=== PATIENT | male | born 1980 | race Caucasian/White ===

== ENCOUNTER 2019-08-16 21:14 | Emergency (ER) | payer SELFPAY ==
[~2019-08-16] VITALS: Ht 188 cm; Wt 100.0 kg
[2019-08-16 22:44] VITALS: BP 166/106
== END 2019-08-16 23:10 | disposition home or self-care (01) ==
LOC: ER 21:14
DX: T40.4X1A Poisoning by other synthetic narcotics, accidental (unintentional), initial encounter (principal); F13.10 Sedative, hypnotic or anxiolytic abuse, uncomplicated; Y92.488 Other paved roadways as the place of occurrence of the external cause
CPT/HCPCS: 93005; 99283